=== PATIENT | male | born 1980 | race African-American/Black ===

== ENCOUNTER 2019-12-15 08:16 | Emergency (ER) | payer MEDICAID ==
[~2019-12-15] VITALS: Ht 167.6 cm; Wt 69.0 kg
[2019-12-15] MEDS ORDERED: ACETAMINOPHEN 325MG TABLET PO ONE (11:15)
[2019-12-15 11:32] VITALS: BP 120/75
== END 2019-12-15 11:36 | disposition home or self-care (01) ==
LOC: ER 08:16
DX: J06.9 Acute upper respiratory infection, unspecified (principal); R07.89 Other chest pain; J45.909 Unspecified asthma, uncomplicated; E11.9 Type 2 diabetes mellitus without complications
CPT/HCPCS: 71045; 87804; 99284